=== PATIENT | male | born 2000 | race Caucasian/White ===

== ENCOUNTER 2022-06-05 14:45 | Emergency (ER) | payer BC, OTHER ==
[~2022-06-05] VITALS: Ht 185.4 cm; Wt 72.7 kg
[2022-06-05 15:21] VITALS: BP 143/87
[2022-06-05] MEDS ORDERED: HYDROcodone-ACET 5/325MG TAB PO ONE (15:45)
[2022-06-05] MEDS ORDERED: TRAM-297 PO (16:08)
== END 2022-06-05 16:14 | disposition home or self-care (01) ==
LOC: ER 14:45
DX: S42.022A Displaced fracture of shaft of left clavicle, initial encounter for closed fracture (principal); R51.9 Headache, unspecified; W19.XXXA Unspecified fall, initial encounter; Y93.89 Activity, other specified; Y92.89 Other specified places as the place of occurrence of the external cause; Y99.8 Other external cause status
CPT/HCPCS: 70450; 73000